=== PATIENT | female | born 1970 | race Caucasian/White ===

== ENCOUNTER 2016-08-19 15:52 | Emergency (ER) | payer SELFPAY ==
--- NOTE | 2016-08-19 17:44 | RAD ---
EXAMINATION : KNEE- RIGHT 4 OR MORE VIEWS HISTORY: Right knee pain. COMPARISONS: None FINDINGS: No fracture or focal destruction is identified. The joint space relationships are maintained. No soft tissue abnormality is identified. IMPRESSION: Normal radiographic evaluation of the right knee.
== END 2016-08-19 17:56 | disposition home or self-care (01) ==
LOC: ED 15:52
DX: M70.51 Other bursitis of knee, right knee (principal); F17.210 Nicotine dependence, cigarettes, uncomplicated